=== PATIENT | male | born 1990 | race Caucasian/White ===

== ENCOUNTER 2019-01-28 17:54 | Inpatient (IN) | payer OTHER ==
[~2019-01-28 17:54] MED LIST: ISOVUE-370 76%-LOCM 1 ML ONE
[2019-01-28] MEDS ORDERED: Acetaminophen 500 MG TAB ONE (18:08)
[2019-01-28] MEDS ORDERED: Ondansetron PF 4 MG/2 ML Vial ONE (18:08)
[2019-01-28 18:41] LABS: Hemoglobin 15.2 g/dL (14.0-18.0); Mean Corpuscular HGB CONC 33.4 g/dL (32.0-36.0); Mean Corpuscular Hemoglobin 28.4 pg (27.0-31.0); Mean Corpuscular Volume 85.2 fL (78.0-98.0); Mean Platelet Volume 7.1 fL (7.4-10.4); Platelet Count 242 thou/uL (130-400); RBC Distribution Width 13.1 % (11.5-14.5); Red Blood Cell (RBC) Count 5.35 mill/uL (4.70-6.10); White Blood Cell (WBC) Count 13.3 thou/uL (4.8-10.8)
--- NOTE | 2019-01-28 18:43 | RAD ---
CHEST ONE VIEW: HISTORY: Chest pain. COMPARISON: None. FINDINGS: The lungs are clear. No pneumothorax. No effusion. No acute osseous abnormality. IMPRESSION: No acute intrathoracic abnormality. POS: HOME
[2019-01-28 19:00] LABS: Band 15 % (5-11); Lymphocytes 5 % (21-51); MDiff Complete? YES; Monocytes 6 % (0-10); Neutrophil 74 % (42-75); Platelet Morphology Comment Appears Adequate; RBC Morphology Normal
[2019-01-28 19:02] LABS: ALT (SGPT) 45 U/L (8-55); AST (SGOT) 20 U/L (5-34); Alkaline Phosphatase 75 U/L (40-150); Anion Gap 15 mmol/L (10-20); BUN (Urea Nitrogen) 13 mg/dL (8.9-20.6); Bilirubin, Total 0.8 mg/dL (0.2-1.2); Calc. Creatinine Clearance 0 mL/min (70-130); Calcium 10.4 mg/dL (7.8-10.44); Carbon Dioxide 23 mmol/L (22-29); Chloride 106 mmol/L (98-107); Estimated GFR-MDRD Greater than 90; Globulin 2.3 g/dL (2.4-3.5); Glucose 91 mg/dL (70-105); Lipase 19 U/L (8-78); Magnesium 1.9 mg/dL (1.6-2.6); Potassium 4.1 mmol/L (3.5-5.1); Protein, Total 7.3 g/dL (6.0-8.3); Sodium 140 mmol/L (136-145)
[2019-01-28 19:08] LABS: Bilirubin Negative (Negative); Blood, Urine Negative (Negative); Clarity Clear (Clear); Glucose, Urine (Dipstick) Normal (Negative); Leukocyte Negative Leu/uL (Negative); Nitrite Negative (Negative); Protein, Urine (Dipstick) 20 mg/dL (Neg-Trace); Urobilinogen Normal mg/dL (Less than 2)
--- NOTE | 2019-01-28 19:49 | CT ---
CT ABDOMEN AND PELVIS WITH CONTRAST: HISTORY: Abdominal pain. COMPARISON: None. FINDINGS: The lung bases are clear. No pericardial effusion. The spleen is unremarkable, as well as the liver . The gallbladder is contracted. Normal proximal small bowel rotation. Celiac trunk and superior mesenteric arteries are patent. Aor toiliac contour is normal. The appendix is visualized and is normal. No dilated loops of large or small bowel. No free intrape ritoneal gas or fluid. No retroperitoneal or periaortic adenopathy. No hydronephrosis. No abnormal renal enhancement. The adrenal glands are unremarkable. The urinary bladder is unremarkable. There are bilateral pars interarticularis defects at L4. No significant listhesis. IMPRESSION: 1. No acute inflammatory process in the abdomen or pelvis. 2. Normal appendix. 3. Low-grade ileocolic mesenteric adenitis could be the source of the patient's pain. POS: HOME
[2019-01-28] MEDS ORDERED: Piperacillin/Tazobactam 3.375 GM VIAL ONE (20:14)
[2019-01-28] MEDS ORDERED: Sodium Chloride 0.9% 100 ML ONE (20:14)
[2019-01-28] MEDS ORDERED: Ondansetron PF 4 MG/2 ML Vial IVP PRN (21:12)
[2019-01-28] MEDS ORDERED: Ondansetron ODT 4 MG TAB SL PRN (21:12)
[2019-01-28 22:24] VITALS: BMI 30.9
[2019-01-28] MEDS ORDERED: Ondansetron ODT 4 MG TAB PO PRN (22:59)
[2019-01-28] MEDS: Sodium Chloride 0.9% 1,000 ML IV SCH (23:37)
[2019-01-28] MEDS: MEROPENEM 1 GM/50 ML 1 GM in Premix Bag 1 BAG IVPB SCH (23:37)
[2019-01-28] MEDS ORDERED: Famotidine/PF 20 mg/2ml Vial SLOW IVP SCH (23:45)
[2019-01-28] MEDS ORDERED: Meropenem 1 GM in Sodium Chloride 0.9% 100 ML IVPB SCH (23:59)
[2019-01-29] MEDS: Ondansetron PF 4 MG/2 ML Vial IVP PRN (02:04)
[2019-01-29] MEDS ORDERED: Piperacillin/Tazobactam 3.375 GM in Sodium Chloride 0.9% 100 ML IVPB SCH (03:00)
--- NOTE | 2019-01-29 03:31 | HP ---
PRIMARY CARE PROVIDER: [facility]. CHIEF COMPLAINT: Abdominal pain and diarrhea. HISTORY OF PRESENT ILLNESS: This is a 28-year-old male, who presents to [facility] Emergency Department in transfer from [facility] where the patient complained of increasing abdominal pain, cramping, diarrhea, and fever. The patient states his symptoms began approximately 1:30 a.m. with abdominal cramping and fever followed by loose watery stool. The patient denied any known sick contacts, travel history, or friends with similar symptoms. The patient denied any specific blood in the stool, but does report associated nausea and vomiting. The patient's last regular oral intake was approximately 24 hours prior to this evaluation. The patient states he had a similar episode of diarrhea approximately in September 2017 that resolved spontaneously. The patient denied any recent antibiotic exposure, abdominal surgery, or travel history. The patient denies taking any specific alleviating medications and presented to the [facility] for evaluation. In the emergency room, the patient underwent general evaluation including CT imaging of the abdomen and pelvis showing ileocolic mesenteric adenitis. The patient also met sepsis criteria with leukocytosis as well as tachycardia and fever. The patient received IV Zosyn in addition to Tylenol and Zofran. PAST MEDICAL HISTORY: 1. Bipolar disorder, treated with lithium. 2. Posttraumatic stress disorder. 3. History of methamphetamine use. PAST SURGICAL HISTORY: Reviewed and negative. CURRENT MEDICATIONS: [place] carbonate 600 mg p.o. b.i.d. ALLERGIES: NO KNOWN DRUG ALLERGIES. FAMILY HISTORY: No inheritable diseases per patient report. SOCIAL HISTORY: Incarcerated with [facility]. History of methamphetamine abuse. Last use in September 2017. No current tobacco or alcohol use. REVIEW OF SYSTEMS: CONSTITUTIONAL: Negative for weight loss or gain, ability to conduct usual activities. SKIN: Negative for rash, itching. EYES: Negative for double vision, pain. ENT/MOUTH: Negative for nose bleeding, neck stiffness, pain, tenderness. CARDIOVASCULAR: Negative for palpitations, dyspnea on exertion, orthopnea. RESPIRATORY: Negative for shortness of breath, wheezing, cough, hemoptysis, fever or night sweats. GASTROINTESTINAL: Negative for poor appetite, abdominal pain, heartburn, nausea , vomiting, constipation, or diarrhea. GENITOURINARY: Negative for urgency, frequency, dysuria, nocturia. MUSCULOSKELETAL: Negative for pain, swelling. NEUROLOGIC/PSYCHIATRIC: Negative for anxiety, depression. ALLERGY/IMMUNOLOGIC: Negative for skin rash, bleeding tendency. Otherwise negative except as stated per HPI. PHYSICAL EXAMINATION: VITAL SIGNS: On admission. Blood pressure 126/74, pulse 120, respiratory rate 18, temperature 98 degrees Fahrenheit, O2 saturation 96% on room air. GENERAL APPEARANCE: This is a 28-year-old male, alert and oriented x3 , pleasant, in mild distress. HEENT: Pupils are equal, round, reactive to light and accommodation. Extraocular muscles are intact. No scleral icterus. No conjunctival injection. Nares are patent. Op is clear. Oral mucosa, dry appearing. NECK: Supple. No cervical adenopathy. No thyromegaly. No carotid bruits. No JVD appreciated. Cervical spine with full active and passive range of motion. No meningeal signs noted. CHEST: Lungs are clear to auscultation bilaterally. CARDIOVASCULAR: S1 and S2 with tachycardia. ABDOMEN: Rounded, with tenderness to palpation diffusely. No palpable mass, rebound or guarding noted. Bowel sounds are positive in all 4 quadrants. EXTREMITIES: Warm and dry with fair turgor. No clubbing, cyanosis, or asymmetric edema appreciated. Pulses are palpable distally at the dorsalis pedis, posterior tibial, and popliteal arteries bilaterally. Capillary refill is less than 2 seconds. NEUROLOGIC: Cranial nerves 2 through 12 are grossly intact. No focal or lateralizing signs appreciated. PERTINENT LAB AND X-RAY FINDINGS: A complete metabolic profile within normal limits. Lactic acid level 1.8. CBC showed a white blood cell count of 13.3, hemoglobin 15, hematocrit 46, and platelet count 242 with 74% neutrophils, 15% bands. Urinalysis showed a specific gravity of 1.042. CT of the abdomen and pelvis dated, 01/28/2019, showed no acute inflammatory process. Questionable low-grade ileocolic mesenteric adenitis. Normal appearing appendix. Portable chest x-ray dated 01/28/2019, showed no acute cardiopulmonary process. EKG dated 01/28/2019 , by my interpretation, shows sinus tachycardia with heart rates in the 110s. Normal R-wave progression noted in the precordial leads. Normal axis. No acute ST-T wave changes appreciated. ASSESSMENT/PLAN: 1. Sepsis. Suspect secondary to acute gastroenteritis. Continue intravenous normal saline at 150 mL/hr. Continue empiric antibiotic coverage with meropenem 1 g IV q.8 hours. Check blood cultures x2. Check stool culture and rule out Clostridium difficile. 2. Acute gastroenteritis. Suspected infectious given patient's presentation. See #1 above. Antiemetics as needed. Hold antidiarrheals. 3. Nausea and vomiting. Continue intravenous fluids as outlined previously. Zofran 4 mg IV q.6 hours p.r.n. Clear liquid diet as tolerated. 4. Dehydration. See above for management. Continue IV fluids. 5. Bipolar disorder. Confirm outpatient regimen of lithium carbonate. Check lithium level. 6. Prophylaxis. SCDs while in bed. Pepcid 20 mg IV q.12 hours. 7. Code status is full. Surrogate medical decision maker is [place] [employer]. Job ID: [id number] MTDD
[2019-01-29] MEDS: Sodium Chloride 0.9% 1,000 ML IV SCH ×3 (05:31→16:27)
[2019-01-29 05:49] LABS: Band 10 % (5-11); Hemoglobin 14.3 g/dL (14.0-18.0); Lymphocytes 6 % (21-51); MDiff Complete? YES; Mean Corpuscular HGB CONC 32.4 g/dL (32.0-36.0); Mean Corpuscular Hemoglobin 27.8 pg (27.0-31.0); Mean Platelet Volume 7.6 fL (7.4-10.4); Monocytes 7 % (0-10); Neutrophil 77 % (42-75); Platelet Count 245 thou/uL (130-400); Platelet Morphology Comment Appears Adequate; RBC Distribution Width 13.2 % (11.5-14.5); RBC Morphology Normal; Red Blood Cell (RBC) Count 5.15 mill/uL (4.70-6.10); White Blood Cell (WBC) Count 13.2 thou/uL (4.8-10.8)
[2019-01-29 06:01] LABS: Anion Gap 13 mmol/L (10-20); BUN (Urea Nitrogen) 11 mg/dL (8.9-20.6); Calc. Creatinine Clearance 181 mL/min (70-130); Calcium 9.3 mg/dL (7.8-10.44); Carbon Dioxide 23 mmol/L (22-29); Chloride 106 mmol/L (98-107); Estimated GFR-MDRD Greater than 90; Glucose 104 mg/dL (70-105); Potassium 3.5 mmol/L (3.5-5.1); Sodium 138 mmol/L (136-145)
[2019-01-29] MEDS ORDERED: Diabetic Tussin 200 MG/10 ML UDCUP PO PRN (07:09)
[2019-01-29] MEDS ORDERED: Loratadine 10 MG TAB PO PRN (07:09)
[2019-01-29] MEDS ORDERED: Cepastat Lozenges 1 LOZ PO PRN (07:09)
[2019-01-29] MEDS ORDERED: Zolpidem Tartrate 5 MG TAB PO PRN (07:09)
[2019-01-29] MEDS ORDERED: hydrALAZINE 20 MG/ML VIAL SLOW IVP PRN (07:09)
[2019-01-29] MEDS ORDERED: Sodium Chloride 0.65% Nasal 44 ML BOT EA NARE PRN (07:09)
[2019-01-29] MEDS ORDERED: Artificial Tears 18 DROP/0.9 ML EA EYE PRN (07:09)
[2019-01-29] MEDS ORDERED: Calcium Carbonate 500 MG ChewTAB PO PRN (07:09)
[2019-01-29] MEDS: Enoxaparin Sodium 40 MG/0.4 ML SYRINGE SC SCH (08:37)
[2019-01-29] MEDS: MEROPENEM 1 GM/50 ML 1 GM in Premix Bag 1 BAG IVPB SCH (08:37)
[2019-01-29] MEDS: Saccharomyces boulardii 250 MG CAP PO SCH (08:38)
[2019-01-29] MEDS: Famotidine/PF 20 mg/2ml Vial SLOW IVP SCH ×2 (08:38→20:42)
[2019-01-29] MEDS: Lithium Carbonate 150 MG CAP PO SCH ×2 (09:06→20:42)
--- NOTE | 2019-01-29 10:47 | PDOC.PN ---
- Subjective Encounter Start Date: 01/29/19 Encounter Start Time: 08:30 -: old records requested/rev pt has diffuse abdominal soreness, nausea, no vomiting, - Objective Resuscitation Status - Order Detail: 01/28/19 22:50 Resuscitation Status Routine Resuscitation Status: FULL: Full Resuscitation MAR Reviewed: Yes Vital Signs & Weight: Vital Signs (12 hours) Temp Pulse Resp BP Pulse Ox 01/29/19 07:18 99.7 F H 114 H 20 117/65 99 01/29/19 04:00 99.6 F 109 H 21 H 108/62 96 01/29/19 00:00 100.1 F H 106 H 21 H 107/60 96 Weight Weight 228 lb 1 oz I&O: 01/28/19 01/29/19 01/30/19 06:59 06:59 06:59 Intake Total 1328 Balance 1328 Result Diagrams: 01/29/19 05:02 01/29/19 05:02 Radiology Reviewed by me: Yes Phys Exam - Physical Examination Constitutional: NAD HEENT: PERRLA, moist MMs, sclera anicteric Neck: no JVD, supple Respiratory: no wheezing, no rales, no rhonchi Cardiovascular: RRR, no significant murmur, no rub Gastrointestinal: soft, no distention, positive bowel sounds diffuse soreness noted no peritoneal sign Musculoskeletal: no edema, pulses present Neurological: non-focal, normal sensation Lymphatic: no nodes Psychiatric: normal affect, A&O x 3 Skin: no rash, normal turgor Dx/Plan (1) Dehydration Code(s): E86.0 - DEHYDRATION Status: Acute (2) Gastroenteritis Code(s): K52.9 - NONINFECTIVE GASTROENTERITIS AND COLITIS, UNSPECIFIED Status : Acute (3) Mesenteric adenitis Code(s): I88.0 - NONSPECIFIC MESENTERIC LYMPHADENITIS Status: Acute (4) Nausea and vomiting Code(s): R11.2 - NAUSEA WITH VOMITING, UNSPECIFIED Status: Acute (5) Sepsis Code(s): A41.9 - SEPSIS, UNSPECIFIED ORGANISM Status: Acute (6) Bipolar disorder Code(s): F31.9 - BIPOLAR DISORDER, UNSPECIFIED Status: Chronic (7) Obesity (BMI 30.0-34.9) Code(s): E66.9 - OBESITY, UNSPECIFIED Status: Chronic (8) PTSD (post-traumatic stress disorder) Code(s): F43.10 - POST-TRAUMATIC STRESS DISORDER, UNSPECIFIED Status: Chronic - Plan cont current plan of care, continue antibiotics * continue IVF * discontinue meropenam and change to cipro and flagyl IV * medication reviewed as below * symptomatic treatment. * follow on stool studies and culture result * will repeat labs tomorrow Review of Systems - Review of Systems Eyes: negative: Pain, Vision Change, Conjunctivae Inflammation, Eyelid Inflammation, Redness, Other ENT: negative: Ear Pain, Ear Discharge, Nose Pain, Nose Discharge, Nose Congestion, Mouth Pain, Mouth Swelling, Throat Pain, Throat Swelling, Other Respiratory: negative: Cough, Dry, Shortness of Breath, Hemoptysis, SOB with Excertion, Pleuritic Pain, Sputum, Wheezing Cardiovascular: negative: chest pain, palpitations, orthopnea, paroxysmal nocturnal dyspnea, edema, light headedness, other Gastrointestinal: Nausea, Abdominal Pain, Diarrhea. negative: Vomiting, Constipation, Melena, Hematochezia, Other Genitourinary: negative: Dysuria, Frequency, Incontinence, Hematuria, Retention , Other Musculoskeletal: negative: Neck Pain, Shoulder Pain, Arm Pain, Back Pain, Hand Pain, Leg Pain, Foot Pain, Other - Medications/Allergies Allergies/Adverse Reactions: Allergies Allergy/AdvReac Type Severity Reaction Status Date / Time No Known Allergies Allergy Verified 01/28/19 21:44 Medications: Current Medications Acetaminophen (Tylenol) 1,000 mg PO Q6H PRN PRN Reason: Mild Pain (1-3) Artificial Tears (Tears Naturale) 2 drop EA EYE PRN PRN PRN Reason: Dry Eyes Calcium Carbonate (Tums) 1,000 mg PO Q4H PRN PRN Reason: Heartburn or Indigestion Enoxaparin Sodium (Lovenox) 40 mg SC 0900 [facility] Last Admin: 01/29/19 08:37 Dose: 40 mg Famotidine (Pepcid) 20 mg SLOW IVP Q12HR [facility] Last Admin: 01/29/19 08:38 Dose: 20 mg Guaifenesin (Robitussin Sf) 200 mg PO Q4H PRN PRN Reason: Cough Hydralazine HCl (Apresoline) 10 mg SLOW IVP Q4H PRN PRN Reason: SBP > 180 and HR < 70 Sodium Chloride (Normal Saline 0.9%) 1,000 mls @ 150 mls/hr IV .Q6H40M [facility] Last Admin: 01/29/19 09:08 Dose: Not Given Meropenem 1 gm/ Device 50 mls @ 100 mls/hr IVPB 0800,1600,2359 [facility] Last Admin: 01/29/19 08:37 Dose: 50 mls [place] Carbonate ([place] Carbonate) 300 mg PO BID [facility] Last Admin: 01/29/19 09:06 Dose: 300 mg Loratadine (Claritin) 10 mg PO DAILYPRN PRN PRN Reason: Sinus Symptoms Ondansetron HCl (Zofran Odt) 4 mg PO Q6H PRN PRN Reason: Nausea/Vomiting Ondansetron HCl (Zofran) 4 mg IVP Q6H PRN PRN Reason: Nausea/Vomiting Last Admin: 01/29/19 02:04 Dose: 4 mg Saccharomyces Boulardii (Florastor) 250 mg PO DAILY [facility] Last Admin: 01/29/19 08:38 Dose: 250 mg Sodium Chloride ([place] Nasal [place] 0.65%) 0 ml EA NARE QIDPRN PRN PRN Reason: Nasal Congestion Throat Lozenges (Cepastat Lozenges) 1 yuridia PO Q2H PRN PRN Reason: Sore Throat Zolpidem Tartrate (Ambien) 5 mg PO HSPRN PRN PRN Reason: Insomnia
[2019-01-29] MEDS: metroNIDAZOLE 500 MG in Premix Bag 1 BAG IVPB SCH ×2 (14:11→23:26)
[2019-01-29] MEDS: Acetaminophen 500 MG TAB PO PRN (19:25)
[2019-01-30] MEDS: Sodium Chloride 0.9% 1,000 ML IV SCH ×4 (03:16→20:48)
[2019-01-30] MEDS: metroNIDAZOLE 500 MG in Premix Bag 1 BAG IVPB SCH ×3 (05:22→23:23)
[2019-01-30 06:02] LABS: #Monocytes 0.6 thou/uL (0.11-0.59); #Neutrophils 4.5 thou/uL (1.40-6.50); %Basophils 0.3 % (0.0-1.0); %Eosinophils 0.7 % (0.0-10.0); %Lymphocytes 16.3 % (21.0-51.0); %Monocytes 9.5 % (0.0-10.0); %Neutrophils 73.2 % (42.0-75.0); Hemoglobin 13.8 g/dL (14.0-18.0); Mean Corpuscular HGB CONC 33.1 g/dL (32.0-36.0); Mean Corpuscular Hemoglobin 28.6 pg (27.0-31.0); Mean Corpuscular Volume 86.3 fL (78.0-98.0); Mean Platelet Volume 6.8 fL (7.4-10.4); Platelet Count 194 thou/uL (130-400); RBC Distribution Width 12.8 % (11.5-14.5); Red Blood Cell (RBC) Count 4.81 mill/uL (4.70-6.10); White Blood Cell (WBC) Count 6.1 thou/uL (4.8-10.8)
[2019-01-30] MEDS: Famotidine/PF 20 mg/2ml Vial SLOW IVP SCH ×2 (09:06→20:48)
[2019-01-30] MEDS: Lithium Carbonate 150 MG CAP PO SCH ×2 (09:06→20:48)
[2019-01-30] MEDS: Saccharomyces boulardii 250 MG CAP PO SCH (09:07)
[2019-01-30] MEDS: Enoxaparin Sodium 40 MG/0.4 ML SYRINGE SC SCH (09:07)
--- NOTE | 2019-01-30 12:02 | PDOC.PN ---
- Subjective Encounter Start Date: 01/30/19 Encounter Start Time: 07:50 pt still has liquid diarrhoea and abdominal pain, no fever, no vomiting - Objective Resuscitation Status - Order Detail: 01/28/19 22:50 Resuscitation Status Routine Resuscitation Status: FULL: Full Resuscitation MAR Reviewed: Yes Vital Signs & Weight: Vital Signs (12 hours) Temp Pulse Resp BP BP Pulse Ox 01/30/19 10:58 98.0 F 98 16 121/84 97 01/30/19 07:09 98.2 F 104 H 16 130/80 98 01/30/19 04:11 99.1 F 95 16 114/75 96 Weight Weight 228 lb 1 oz I&O: 01/29/19 01/30/19 01/31/19 06:59 06:59 06:59 Intake Total 1328 5522 Balance 1328 5522 Result Diagrams: 01/30/19 05:40 01/29/19 05:02 Phys Exam - Physical Examination Constitutional: NAD HEENT: PERRLA, moist MMs, sclera anicteric Neck: no JVD, supple Respiratory: no wheezing, no rales, no rhonchi Cardiovascular: RRR, no significant murmur, no rub Gastrointestinal: soft, non-tender, no distention, positive bowel sounds Musculoskeletal: no edema, pulses present Neurological: non-focal, normal sensation, moves all 4 limbs Lymphatic: no nodes Psychiatric: normal affect, A&O x 3 Skin: no rash, normal turgor Dx/Plan (1) Dehydration Code(s): E86.0 - DEHYDRATION Status: Acute (2) Gastroenteritis Code(s): K52.9 - NONINFECTIVE GASTROENTERITIS AND COLITIS, UNSPECIFIED Status : Acute (3) Mesenteric adenitis Code(s): I88.0 - NONSPECIFIC MESENTERIC LYMPHADENITIS Status: Acute (4) Nausea and vomiting Code(s): R11.2 - NAUSEA WITH VOMITING, UNSPECIFIED Status: Acute (5) Sepsis Code(s): A41.9 - SEPSIS, UNSPECIFIED ORGANISM Status: Acute (6) Bipolar disorder Code(s): F31.9 - BIPOLAR DISORDER, UNSPECIFIED Status: Chronic (7) Obesity (BMI 30.0-34.9) Code(s): E66.9 - OBESITY, UNSPECIFIED Status: Chronic (8) PTSD (post-traumatic stress disorder) Code(s): F43.10 - POST-TRAUMATIC STRESS DISORDER, UNSPECIFIED Status: Chronic - Plan cont current plan of care, continue antibiotics * continue cipro and flagyl * continue IVF * medication reviewed as below * symptomatic treatment * will monitor today. Review of Systems - Review of Systems Eyes: negative: Pain, Vision Change, Conjunctivae Inflammation, Eyelid Inflammation, Redness, Other ENT: negative: Ear Pain, Ear Discharge, Nose Pain, Nose Discharge, Nose Congestion, Mouth Pain, Mouth Swelling, Throat Pain, Throat Swelling, Other Respiratory: negative: Cough, Dry, Shortness of Breath, Hemoptysis, SOB with Excertion, Pleuritic Pain, Sputum, Wheezing Cardiovascular: negative: chest pain, palpitations, orthopnea, paroxysmal nocturnal dyspnea, edema, light headedness, other Gastrointestinal: Abdominal Pain, Diarrhea. negative: Nausea, Vomiting, Constipation, Melena, Hematochezia, Other Genitourinary: negative: Dysuria, Frequency, Incontinence, Hematuria, Retention , Other Musculoskeletal: negative: Neck Pain, Shoulder Pain, Arm Pain, Back Pain, Hand Pain, Leg Pain, Foot Pain, Other Skin: negative: Rash, Lesions, Titi, Bruising, Other - Medications/Allergies Allergies/Adverse Reactions: Allergies Allergy/AdvReac Type Severity Reaction Status Date / Time No Known Allergies Allergy Verified 01/28/19 21:44 Medications: Current Medications Acetaminophen (Tylenol) 1,000 mg PO Q6H PRN PRN Reason: Mild Pain (1-3) Last Admin: 01/29/19 19:25 Dose: 1,000 mg Artificial Tears (Tears Naturale) 2 drop EA EYE PRN PRN PRN Reason: Dry Eyes Calcium Carbonate (Tums) 1,000 mg PO Q4H PRN PRN Reason: Heartburn or Indigestion Last Admin: 01/29/19 19:25 Dose: 1,000 mg Enoxaparin Sodium (Lovenox) 40 mg SC 0900 [facility] Last Admin: 01/30/19 09:07 Dose: 40 mg Famotidine (Pepcid) 20 mg SLOW IVP Q12HR [facility] Last Admin: 01/30/19 09:06 Dose: 20 mg Guaifenesin (Robitussin Sf) 200 mg PO Q4H PRN PRN Reason: Cough Hydralazine HCl (Apresoline) 10 mg SLOW IVP Q4H PRN PRN Reason: SBP > 180 and HR < 70 Sodium Chloride (Normal Saline 0.9%) 1,000 mls @ 150 mls/hr IV .Q6H40M [facility] Last Admin: 01/30/19 05:22 Dose: 1,000 mls Metronidazole 500 mg/ Device 100 mls @ 100 mls/hr IVPB Q8HR [facility] Last Admin: 01/30/19 05:22 Dose: 100 mls Ciprofloxacin/Dextrose 400 mg/ (Device) 200 mls @ 200 mls/hr IVPB Q12HR [facility] Last Admin: 01/30/19 09:06 Dose: 200 mls [place] Carbonate ([place] Carbonate) 300 mg PO BID [facility] Last Admin: 01/30/19 09:06 Dose: 300 mg Loratadine (Claritin) 10 mg PO DAILYPRN PRN PRN Reason: Sinus Symptoms Ondansetron HCl (Zofran Odt) 4 mg PO Q6H PRN PRN Reason: Nausea/Vomiting Ondansetron HCl (Zofran) 4 mg IVP Q6H PRN PRN Reason: Nausea/Vomiting Last Admin: 01/29/19 02:04 Dose: 4 mg Saccharomyces Boulardii (Florastor) 250 mg PO DAILY [facility] Last Admin: 01/30/19 09:07 Dose: 250 mg Sodium Chloride ([place] Nasal [place] 0.65%) 0 ml EA NARE QIDPRN PRN PRN Reason: Nasal Congestion Throat Lozenges (Cepastat Lozenges) 1 yuridia PO Q2H PRN PRN Reason: Sore Throat Zolpidem Tartrate (Ambien) 5 mg PO HSPRN PRN PRN Reason: Insomnia Last Admin: 01/29/19 20:41 Dose: 5 mg
[2019-01-30] MEDS: Acetaminophen 500 MG TAB PO PRN ×2 (14:22→20:48)
[2019-01-30 22:09] LABS: #Basophils 0.1 thou/uL (0.0-0.2); #Lymphocytes 0.7 thou/uL (1.20-3.40); #Monocytes 0.6 thou/uL (0.11-0.59); #Neutrophils 5.5 thou/uL (1.40-6.50); %Basophils 0.9 % (0.0-1.0); %Eosinophils 0.2 % (0.0-10.0); %Lymphocytes 10.2 % (21.0-51.0); %Monocytes 8.2 % (0.0-10.0); %Neutrophils 80.4 % (42.0-75.0); Mean Corpuscular HGB CONC 34.4 g/dL (32.0-36.0); Mean Corpuscular Hemoglobin 29.1 pg (27.0-31.0); Mean Corpuscular Volume 84.5 fL (78.0-98.0); Mean Platelet Volume 7.1 fL (7.4-10.4); Platelet Count 184 thou/uL (130-400); RBC Distribution Width 12.7 % (11.5-14.5); Red Blood Cell (RBC) Count 4.82 mill/uL (4.70-6.10); White Blood Cell (WBC) Count 6.8 thou/uL (4.8-10.8)
[2019-01-31] MEDS: Sodium Chloride 0.9% 1,000 ML IV SCH ×2 (01:37→09:22)
[2019-01-31] MEDS: Ondansetron PF 4 MG/2 ML Vial IVP PRN (01:45)
[2019-01-31] MEDS: Acetaminophen 500 MG TAB PO PRN (02:22)
[2019-01-31] MEDS: metroNIDAZOLE 500 MG in Premix Bag 1 BAG IVPB SCH ×2 (06:10→12:58)
[2019-01-31] MEDS: Lithium Carbonate 150 MG CAP PO SCH ×2 (09:21→20:28)
[2019-01-31] MEDS: Famotidine 20 MG TAB PO SCH ×2 (09:22→20:29)
[2019-01-31] MEDS: Saccharomyces boulardii 250 MG CAP PO SCH (09:22)
[2019-01-31] MEDS: Enoxaparin Sodium 40 MG/0.4 ML SYRINGE SC SCH (09:22)
--- NOTE | 2019-01-31 11:47 | PDOC.PN ---
- Subjective Encounter Start Date: 01/31/19 Encounter Start Time: 07:50 Patient seen and examined. No overnight events he still has diarrhoea and last night he had fever - Objective Resuscitation Status - Order Detail: 01/28/19 22:50 Resuscitation Status Routine Resuscitation Status: FULL: Full Resuscitation MAR Reviewed: Yes Vital Signs & Weight: Vital Signs (12 hours) Temp Pulse Resp BP BP Pulse Ox 01/31/19 10:00 98.5 F 01/31/19 07:13 98.5 F 86 18 121/72 97 01/31/19 06:35 85 18 119/77 98 01/31/19 05:02 98.8 F 01/31/19 02:49 102.0 F H 01/31/19 00:00 98.6 F Weight Weight 228 lb 1 oz I&O: 01/30/19 01/31/19 02/01/19 06:59 06:59 06:59 Intake Total 5522 2080 Balance 5522 2080 Result Diagrams: 01/30/19 22:04 01/29/19 05:02 Phys Exam - Physical Examination Constitutional: NAD HEENT: PERRLA, moist MMs, sclera anicteric Neck: no JVD, supple Respiratory: no wheezing, no rales, no rhonchi Cardiovascular: RRR, no significant murmur, no rub Gastrointestinal: soft, no distention, positive bowel sounds lower abdominal pain Musculoskeletal: no edema, pulses present Neurological: non-focal, normal sensation, moves all 4 limbs Dx/Plan (1) Sepsis Code(s): A41.9 - SEPSIS, UNSPECIFIED ORGANISM Status: Acute (2) Gastroenteritis Code(s): K52.9 - NONINFECTIVE GASTROENTERITIS AND COLITIS, UNSPECIFIED Status : Acute (3) Mesenteric adenitis Code(s): I88.0 - NONSPECIFIC MESENTERIC LYMPHADENITIS Status: Acute (4) Dehydration Code(s): E86.0 - DEHYDRATION Status: Resolved (5) Nausea and vomiting Code(s): R11.2 - NAUSEA WITH VOMITING, UNSPECIFIED Status: Resolved (6) Bipolar disorder Code(s): F31.9 - BIPOLAR DISORDER, UNSPECIFIED Status: Chronic (7) Obesity (BMI 30.0-34.9) Code(s): E66.9 - OBESITY, UNSPECIFIED Status: Chronic (8) PTSD (post-traumatic stress disorder) Code(s): F43.10 - POST-TRAUMATIC STRESS DISORDER, UNSPECIFIED Status: Chronic - Plan cont current plan of care, continue antibiotics * advance diet today * continue IV cipro and flagyl * medication reviewed as below * symptomatic treatment * will monitor, once afebrile and diarrhoea under control will consider discharge. Review of Systems - Review of Systems Constitutional: fever. negative: chills, sweats, weakness, malaise, other ENT: negative: Ear Pain, Ear Discharge, Nose Pain, Nose Discharge, Nose Congestion, Mouth Pain, Mouth Swelling, Throat Pain, Throat Swelling, Other Respiratory: negative: Cough, Dry, Shortness of Breath, Hemoptysis, SOB with Excertion, Pleuritic Pain, Sputum, Wheezing Cardiovascular: negative: chest pain, palpitations, orthopnea, paroxysmal nocturnal dyspnea, edema, light headedness, other Gastrointestinal: Diarrhea. negative: Nausea, Vomiting, Abdominal Pain, Constipation, Melena, Hematochezia, Other Genitourinary: negative: Dysuria, Frequency, Incontinence, Hematuria, Retention , Other Musculoskeletal: negative: Neck Pain, Shoulder Pain, Arm Pain, Back Pain, Hand Pain, Leg Pain, Foot Pain, Other - Medications/Allergies Allergies/Adverse Reactions: Allergies Allergy/AdvReac Type Severity Reaction Status Date / Time No Known Allergies Allergy Verified 01/28/19 21:44 Medications: Current Medications Acetaminophen (Tylenol) 1,000 mg PO Q6H PRN PRN Reason: Mild Pain (1-3) Last Admin: 01/31/19 02:22 Dose: 1,000 mg Artificial Tears (Tears Naturale) 2 drop EA EYE PRN PRN PRN Reason: Dry Eyes Calcium Carbonate (Tums) 1,000 mg PO Q4H PRN PRN Reason: Heartburn or Indigestion Last Admin: 01/29/19 19:25 Dose: 1,000 mg Enoxaparin Sodium (Lovenox) 40 mg SC 0900 [facility] Last Admin: 01/31/19 09:22 Dose: 40 mg Famotidine (Pepcid) 20 mg PO Q12HR [facility] Last Admin: 01/31/19 09:22 Dose: 20 mg Guaifenesin (Robitussin Sf) 200 mg PO Q4H PRN PRN Reason: Cough Hydralazine HCl (Apresoline) 10 mg SLOW IVP Q4H PRN PRN Reason: SBP > 180 and HR < 70 Sodium Chloride (Normal Saline 0.9%) 1,000 mls @ 150 mls/hr IV .Q6H40M [facility] Last Admin: 01/31/19 09:22 Dose: 1,000 mls Metronidazole 500 mg/ Device 100 mls @ 100 mls/hr IVPB Q8HR [facility] Last Admin: 01/31/19 06:10 Dose: 100 mls Ciprofloxacin/Dextrose 400 mg/ (Device) 200 mls @ 200 mls/hr IVPB Q12HR [facility] Last Admin: 01/31/19 09:20 Dose: 200 mls [place] Carbonate ([place] Carbonate) 300 mg PO BID [facility] Last Admin: 01/31/19 09:21 Dose: 300 mg Loratadine (Claritin) 10 mg PO DAILYPRN PRN PRN Reason: Sinus Symptoms Ondansetron HCl (Zofran Odt) 4 mg PO Q6H PRN PRN Reason: Nausea/Vomiting Ondansetron HCl (Zofran) 4 mg IVP Q6H PRN PRN Reason: Nausea/Vomiting Last Admin: 01/31/19 01:45 Dose: 4 mg Saccharomyces Boulardii (Florastor) 250 mg PO DAILY [facility] Last Admin: 01/31/19 09:22 Dose: 250 mg Sodium Chloride ([place] Nasal [place] 0.65%) 0 ml EA NARE QIDPRN PRN PRN Reason: Nasal Congestion Sodium Chloride (Flush - Normal Saline) 10 ml IVF Q12HR [facility] Last Admin: 01/31/19 09:26 Dose: 10 ml Sodium Chloride (Flush - Normal Saline) 10 ml IVF PRN PRN PRN Reason: Saline Flush Throat Lozenges (Cepastat Lozenges) 1 yuridia PO Q2H PRN PRN Reason: Sore Throat Zolpidem Tartrate (Ambien) 5 mg PO HSPRN PRN PRN Reason: Insomnia Last Admin: 01/29/19 20:41 Dose: 5 mg
[2019-02-01] MEDS: metroNIDAZOLE 500 MG in Premix Bag 1 BAG IVPB SCH ×3 (01:03→08:43)
[2019-02-01 08:22] VITALS: BP 104/67; TEMP 98.2
[2019-02-01] MEDS: Lithium Carbonate 150 MG CAP PO SCH (08:42)
[2019-02-01] MEDS: Famotidine 20 MG TAB PO SCH (08:42)
[2019-02-01] MEDS: Enoxaparin Sodium 40 MG/0.4 ML SYRINGE SC SCH (08:43)
[2019-02-01] MEDS: Saccharomyces boulardii 250 MG CAP PO SCH (08:43)
--- NOTE | 2019-02-01 11:12 | DIS ---
DATE OF ADMISSION: 01/28/2019 DATE OF DISCHARGE: 02/01/2019 PRIMARY CARE PHYSICIAN: [facility] Call Admission. DISCHARGE DISPOSITION: [facility]. PRIMARY DISCHARGE DIAGNOSES: 1. Acute gastroenteritis. 2. Mesenteric adenitis. 3. Sepsis. 4. Nausea and vomiting, resolved. 5. Dehydration, corrected. SECONDARY DISCHARGE DIAGNOSES: Posttraumatic stress disorder, obesity with BMI of 30, and bipolar disorder. PRIMARY PROCEDURE/OPERATION: None. RADIOLOGICAL INVESTINATION: Abdomen and pelvis CT scan. SIGNIFICANT LABORATORY DATA: Hemoglobin 14.0, WBC 6.8, and platelet 184. Sodium 138 and creatinine 0.89. LFT normal. Stool for infection workup negative. Blood culture negative. DISCHARGE MEDICATIONS: 1. Ciprofloxacin 500 mg p.o. b.i.d. for 5 days. 2. Flagyl 500 mg p.o. t.i.d. for 5 days. 3. Florastor 250 mg p.o. daily for 5 days. 4. [place] 300 mg p.o. b.i.d. CONTRAINDICATION: None. CODE STATUS: Full code. INPATIENT IMAGERY INTELLIGENCE: None. ALLERGIES: NO KNOWN DRUG ALLERGIES. DISCHARGE PLAN: Posthospital, the patient is discharged to nursing home. Subsequently, the patient will follow up with primary care physician. HOSPITAL COURSE: This is a 28-year-old male with above-mentioned medical problem, who was admitted by Dr. Wong. Please see his H and P for further details. The patient was admitted for nausea, vomiting, abdominal pain, and diarrhea. He was dehydrated on admission. He had CT abdomen and pelvis, which showed mesenteric adenitis. The patient was treated with IV Cipro and Flagyl, IV fluid, and symptomatic treatment. The patient has significant improvement while in the hospital. He remained afebrile for last 24 hours. Today, he has no diarrhea and he expressed his wish to go home. I have seen and examined the patient at bedside today. His examination is normal. All new medication prescription given to him. Job ID: [id number]
--- NOTE | 2019-02-02 13:59 | EKG ---
Test Reason : CHEST PAIN Blood Pressure : / mmHG Vent. Rate : 116 BPM Atrial Rate : 116 BPM P-R Int : 172 ms QRS Dur : 086 ms QT Int : 304 ms P-R-T Axes : 047 062 000 degrees QTc Int : 422 ms Sinus tachycardia Possible Left atrial enlargement Possible Inferior infarct , age undetermined Abnormal ECG Confirmed by CAITLIN MCMILLAN M.D. ([id number]), editor publications FREDIS HOANG ([id number]) on 02/02/2019 1:58:48 PM Referred By: DEYANIRA Confirmed By:CAITLIN MCMILLAN M.D.
== END 2019-02-01 13:32 | DRG 872 ==
LOC: ERS 17:54 → EEVIPCON 17:54 → T4-A 21:04
PROVIDERS: ADMIT Internal Medicine; ATTEND Internal Medicine
DX: A41.9 Sepsis, unspecified organism (principal); A09 Infectious gastroenteritis and colitis, unspecified; F31.9 Bipolar disorder, unspecified; F43.10 Post-traumatic stress disorder, unspecified; E86.0 Dehydration; I88.0 Nonspecific mesenteric lymphadenitis; E66.9 Obesity, unspecified; Z68.30 Body mass index [BMI] 30.0-30.9, adult; Z79.899 Other long term (current) drug therapy
CPT/HCPCS: 36415; 71045; 74177; 80048; 80053; 80178; 81003; 83605; 83630; 83690; 83735; 84484; 85007; 85025; 85027; 87040; 87045; 87046; 87077; 87081; 87186; 87324; 87449; 87899; 93005; 96361; 96374; 96375; J0744; J1650; J2185; J2405; J2543; J3490; Q9966; S0028